=== PATIENT | male | born 1990 ===

== ENCOUNTER 2017-02-11 15:09 | Emergency (ER) | payer BC, MEDICAID ==
[2017-02-11 15:10] VITALS: BMI 26.2
[2017-02-11 15:27] VITALS: RESP 16; TEMP 98.3; O2SAT 98
[2017-02-11 15:32] VITALS: BP 102/55
--- NOTE | 2017-02-11 16:03 | ED PDOC ---
Arrival/HPI - General Chief Complaint: Weakness/Neurological Deficit Time Seen by Provider: 02/11/17 15:40 Historian: Patient, Parent - History of Present Illness Time/Duration: Other (2 months) Symptom Onset: Gradual Symptom Course: Worsening Severity Level: Severe Activities at Onset: Rest Associated Symptoms (Text): 02/11/17 16:02 Patient complains of a 2 month history of worsening total body numbness. Patient reports that his entire face both upper and both lower extremities becoming numb. No weakness. No headache. No dizziness lightheadedness. No difficulty with ADLs. No difficulty with speech. No difficulty with gait. Seems extremely anxious and nervous. He also complains of a 2 year history of chest pain. Currently no chest pain. He has been worked up by the rn clinical neurologist and PMD with no findings. He had MRI of the brain with and without contrast and I had [facility] radiology faxed me the report which showed no acute findings. He had MRI of the cervical spine with and without contrast which showed multiple disc bulges at multiple levels. Patient's biggest complaint is facial numbness, and therefore I feel that these MRI findings of his cervical spine are unrelated to his complaint. I discussed the case in detail with his PMD who will follow up in the office and refers back to the neurologist. Past Medical History - Past History Past History: No Previous - Infectious Disease Hx of Infectious Diseases: None - Past Medical History Past Medical History: No Previous - Cardiac Hx Cardiac Disorders: No - Pulmonary Hx Respiratory Disorders: No - Neurological Hx Neurological Disorder: No - HEENT Hx HEENT Disorder: No - Renal Hx Renal Disorder: No - Endocrine/Metabolic Hx Endocrine Disorders: No - Hematological/Oncological Hx Blood Disorders: No - Integumentary Hx Dermatological Disorder: No - Musculoskeletal/Rheumatological Hx Musculoskeletal Disorders: No - Gastrointestinal Hx Gastrointestinal Disorders: No - Genitourinary/Gynecological Hx Genitourinary Disorders: No - Psychiatric Hx Anxiety: Yes Hx Depression: Yes Hx Substance Use: No - Past Surgical History Past Surgical History: No Previous - Anesthesia Hx Anesthesia: No Hx Anesthesia Reactions: No Hx Malignant Hyperthermia: No - Suicidal Assessment Feels Threatened In Home Enviroment: No Family/Social History - Physician Review Nursing Documentation Reviewed: Yes Family/Social History: Unknown Family HX Smoking Status: Heavy Smoker > 10 Cigarettes Daily Hx Alcohol Use: No Hx Substance Use: No Allergies/Home Meds Allergies/Adverse Reactions: Allergies No Known Allergies Allergy (Verified 11/19/12 19:28) Home Medications: Home Meds Medication Instructions Recorded Confirmed Omeprazole 40 mg PO DAILY 01/23/17 01/23/17 Review of Systems - Physician Review All systems were reviewed & negative as marked: Yes - Review of Systems Constitutional: Normal Respiratory: Normal Cardiovascular: Chest Pain. absent: Palpitations, Syncope Gastrointestinal: absent: Abdominal Pain, Diarrhea, Nausea, Vomiting Skin: Normal Neurological: absent: Headache, Dizziness, Focal Weakness, Gait Changes, Speech Changes, Facial Droop, Disequilibrium, Seizure Physical Exam Vital Signs Temp Pulse Resp BP Pulse Ox 02/11/17 15:26 98.3 F 16 102/55 L 98 02/11/17 15:25 98.3 F 67 14 102/54 L 98 Temperature: Afebrile Blood Pressure: Normal Pulse: Regular Respiratory Rate: Normal Appearance: Positive for: Well-Appearing, Non-Toxic, Comfortable, Other (Anxious ) Pain Distress: None Mental Status: Positive for: Alert and Oriented X 3 - Systems Exam Head: Present: Atraumatic, Normocephalic Pupils: Present: PERRL Extroacular Muscles: Present: EOMI Conjunctiva: Present: Normal Ears: Present: NORMAL TM, Normal Canal. No: Erythema Mouth: Present: Moist Mucous Membranes Pharnyx: No: ERYTHEMA, EXUDATE, TONSILS ENLARGED Neck: Present: Normal Range of Motion. No: Meningeal Signs, MIDLINE TENDERNESS , Paraspinal Tenderness Respiratory/Chest: Present: Clear to Auscultation, Good Air Exchange. No: Respiratory Distress, Accessory Muscle Use Cardiovascular: Present: Regular Rate and Rhythm, Normal S1, S2. No: Murmurs Upper Extremity: Present: Normal Inspection. No: Cyanosis, Edema Lower Extremity: Present: Normal Inspection. No: Edema Neurological: Present: GCS=15, CN II-XII Intact, Speech Normal, Motor Func Grossly Intact, Normal Sensory Function, Normal Cerebellar Funct, Norm Deep Tendon Reflexes, Gait Normal Skin: Present: Warm, Dry, Normal Color. No: Rashes Psychiatric: Present: Alert, Oriented x 3, Normal Insight, Normal Concentration Disposition/Present on Arrival - Present on Arrival Any Indicators Present on Arrival: No History of DVT/PE: No History of Uncontrolled Diabetes: No Urinary Catheter: No History of Decub. Ulcer: No History Surgical Site Infection Following: None - Disposition Have Diagnosis and Disposition been Completed?: Yes Diagnosis: Numbness Disposition: HOME/ ROUTINE Disposition Time: 16:16 Patient Plan: Discharge Condition: GOOD Discharge Instructions (ExitCare): Paresthesia (ED) Referrals: Chadwick Ritchie DO [Primary Care Provider] - Follow up with primary Mario Mary MD [Staff Provider] - Follow up with primary Forms: WORK NOTE
[2017-02-11 16:13] VITALS: PULSE 67
== END 2017-02-11 16:30 | disposition home or self-care (01) ==
LOC: ED 15:09
DX: R20.9 Unspecified disturbances of skin sensation (principal)

== ENCOUNTER 2017-02-20 16:35 | Emergency (ER) | payer BC, MEDICAID ==
[2017-02-20 16:45] VITALS: BMI 26.4
[2017-02-20 16:48] VITALS: TEMP 98.3; O2SAT 99
--- NOTE | 2017-02-20 17:11 | ED PDOC ---
Arrival/HPI - General Chief Complaint: Weakness/Neurological Deficit Time Seen by Provider: 02/20/17 16:50 Historian: Patient, Parent - History of Present Illness Narrative History of Present Illness (Text): 02/20/17 17:06 26 yo male, presents with mom, c/o feeling weak, lightheadedness, and coldness and numbness to face, fingers and toes intermittently x 2 years. More frequently the past 3 months. He had symptoms today and he checked his BP with home BP machine and he said it was 82/54 and then he rechecked and SBP was 100' s. He's seen Dr. Ritchie his PMD who sent him to a Neurologist and [facility]. He saw his [facility] Dr. Bullock, in November or December where they did and stress test which was negative. He saw around the same time his Neurologist Dr. Mary who did and MRI Head 02/04 and MRI Cervical 02/06 that showed some bulging discs as showed to me by mother. He also states he hasn't been sleeping well. He wakes up here and there. He is under stress. Denies HI or SI. PMD: Dr. Ritchie [facility]: Dr. Bullock Neurologist: Dr. Mary 02/20/17 17:12 Past Medical History - Provider Review Nursing Documentation Reviewed: Yes - Past History Past History: No Previous - Infectious Disease Hx of Infectious Diseases: None - Past Medical History Past Medical History: No Previous - Cardiac Hx Cardiac Disorders: No - Pulmonary Hx Respiratory Disorders: No - Neurological Hx Neurological Disorder: No - HEENT Hx HEENT Disorder: No - Renal Hx Renal Disorder: No - Endocrine/Metabolic Hx Endocrine Disorders: No - Hematological/Oncological Hx Blood Disorders: No - Integumentary Hx Dermatological Disorder: No - Musculoskeletal/Rheumatological Hx Musculoskeletal Disorders: No - Gastrointestinal Hx Gastrointestinal Disorders: No - Genitourinary/Gynecological Hx Genitourinary Disorders: No - Psychiatric Hx Anxiety: Yes Hx Depression: Yes Hx Substance Use: No - Past Surgical History Past Surgical History: No Previous - Anesthesia Hx Anesthesia: No Hx Anesthesia Reactions: No Hx Malignant Hyperthermia: No - Suicidal Assessment Feels Threatened In Home Enviroment: No Family/Social History - Physician Review Nursing Documentation Reviewed: Yes Family/Social History: No Known Family HX Smoking Status: Heavy Smoker > 10 Cigarettes Daily Hx Alcohol Use: No Hx Substance Use: No Allergies/Home Meds Allergies/Adverse Reactions: Allergies No Known Allergies Allergy (Verified 02/20/17 16:45) Home Medications: Home Meds Medication Instructions Recorded Confirmed No Known Home Med 02/20/17 02/20/17 Review of Systems - Physician Review All systems were reviewed & negative as marked: Yes - Review of Systems Constitutional: Normal Eyes: Normal ENT: Normal Respiratory: Normal Cardiovascular: Normal Gastrointestinal: Normal Genitourinary Male: Normal Musculoskeletal: Normal Skin: Normal Neurological: Dizziness. absent: Headache, Focal Weakness, Gait Changes, Speech Changes, Facial Droop Endocrine: Normal. absent: Diaphoresis, Polyuria, Polydipsia Hemo/Lymphatic: Normal Psychiatric: Normal Physical Exam Vital Signs Reviewed: Yes Vital Signs Temp Pulse Resp BP Pulse Ox 02/20/17 18:05 68 18 109/68 99 02/20/17 16:47 98.3 F 71 16 111/70 99 Temperature: Afebrile Blood Pressure: Normal Pulse: Regular Respiratory Rate: Normal Appearance: Positive for: Well-Appearing, Non-Toxic, Comfortable Pain Distress: None Mental Status: Positive for: Alert and Oriented X 3 - Systems Exam Head: Present: Atraumatic, Normocephalic Pupils: Present: PERRL Extroacular Muscles: Present: EOMI Conjunctiva: Present: Normal Mouth: Present: Moist Mucous Membranes Neck: Present: Normal Range of Motion Respiratory/Chest: Present: Clear to Auscultation, Good Air Exchange. No: Respiratory Distress, Accessory Muscle Use Cardiovascular: Present: Regular Rate and Rhythm, Normal S1, S2. No: Murmurs Abdomen: Present: Normal Bowel Sounds. No: Tenderness, Distention, Peritoneal Signs Back: Present: Normal Inspection Upper Extremity: Present: Normal Inspection. No: Cyanosis, Edema Lower Extremity: Present: Normal Inspection. No: Edema Neurological: Present: GCS=15, CN II-XII Intact, Speech Normal Skin: Present: Warm, Dry, Normal Color. No: Rashes Psychiatric: Present: Alert, Oriented x 3, Normal Insight, Normal Concentration Medical Decision Making ED Course and Treatment: 02/20/17 17:15 26 yo male with weakness, lightheadedness, dizziness, numbness r/o electrolyte abnormalities r/o anemia r/o arrythmia -- Labs -- EKG -- Orthostatics -- Reevaluate and disposition EKG: NSR at [address] elevations, nl intervals, nl axis, no WPW 02/20/17 18:[address] Ritchie came to see this patient in the ED and agrees that patient can go home with f/u in his office. Patient's are not new or worsened. He's had an MRI already as dated in my note. He will arrange f/u with cardiology and neurology. He's able to walk in the ED with no ataxia. Neuro exam on reevaluation is normal and no change since arrived. - Lab Interpretations Lab Results: 02/20/17 18:27 02/20/17 18:27 Lab Results 02/20/17 18:27: Sodium 138, Potassium 4.3, Chloride 100, Carbon Dioxide 29, Anion Gap 13, BUN 21, Creatinine 1.0, Est GFR ( Amer) > 60, Est GFR (Non- Af Amer) > 60, Random Glucose 84, Calcium 8.9 02/20/17 18:27: WBC 6.0, RBC 4.73, Hgb 14.6, Hct 42.1, MCV 89.0, MCH 30.9, MCHC 34.7, RDW 12.2, Plt Count 236, MPV 10.2, Gran % 57.0, Lymph % (Auto) 32.1, [place] % (Auto) 9.9 H, Eos % (Auto) 0.8 L, Baso % (Auto) 0.2, Gran # 3.39, Lymph # 1.9 , [place] # 0.6, Eos # 0.1, Baso # 0.01 - EKG Interpretation Type: 12 lead EKG Disposition/Present on Arrival - Present on Arrival Any Indicators Present on Arrival: No History of DVT/PE: No History of Uncontrolled Diabetes: No Urinary Catheter: No History of Decub. Ulcer: No History Surgical Site Infection Following: None - Disposition Have Diagnosis and Disposition been Completed?: Yes Diagnosis: Numbness, Weakness Disposition: HOME/ ROUTINE Disposition Time: 18:55 Patient Plan: Discharge Patient Problems: Current Active Problems Problem Status Onset Numbness Acute Weakness Acute Condition: IMPROVED Discharge Instructions (ExitCare): Weakness (ED) Additional Instructions: Ms Pineda, thank you for letting us take care of you today. Your provider was Dr. Ridley. You were treated for Numbness, Weakness. The emergency medical care you received today was directed at your acute symptoms. If you were prescribed any medication, please fill it and take as directed. It may take several days for your symptoms to resolve. Return to the Emergency Department if your symptoms worsen, do not improve, or if you have any other problems. Please contact your doctor or call one of the physicians/clinics you have been referred to that are listed on the Patient Visit Information form that is included in your discharge packet. Bring any paperwork you were given at discharge with you along with any medications you are taking to your follow up visit. Our treatment cannot replace ongoing medical care by a primary care provider (PCP) outside of the emergency department. Thank you for allowing the [facility] team to be part of your care today. If you had an X-Ray or CT scan: A Radiologist will review the ED reading if any change in treatment is needed we will contact you. If you had a blood, urine, or wound culture: It will take several days for the results, if any change in treatment is needed we will contact you. If you had an STI test: It will take 48 hours for the results. Please call after 1 week if you have not heard back. Referrals: Chadwick Ritchie, DO [Primary Care Provider] - Follow up with primary Forms: WORK NOTE, Air Visits Discharge (Bhutanese)
[2017-02-20 18:06] VITALS: BP 109/68; PULSE 68; RESP 18
[2017-02-20 18:29] LABS: ADD MANUAL DIFF? NO
[2017-02-20 18:33] LABS: BASO # 0.01 K/mm3 (0.0-2.0); BASO % 0.2 % (0.0-3.0); EOS # 0.1 (0.0-0.7); EOS % 0.8 % (1.5-5.0); GRAN # 3.39 (1.4-6.5); HEMATOCRIT 42.1 % (42.0-52.0); LYMPH # 1.9 (1.2-3.4); LYMPH % 32.1 % (22.0-35.0); MEAN CORPUSCULAR HEMOGLOBIN 30.9 pg (25.0-35.0); MEAN CORPUSCULAR HGB CONC 34.7 g/dl (31.0-37.0); MEAN PLATELET VOLUME 10.2 fl (7.0-11.0); MONO # 0.6 (0.1-0.6); MONO % 9.9 % (1.0-6.0); PLATELET COUNT 236 10^3/uL (120.0-450.0); RED CELL DISTRIBUTION WIDTH 12.2 % (11.5-14.5)
[2017-02-20 18:43] LABS: BLOOD UREA NITROGEN 21 mg/dL (7-21); CALCIUM 8.9 mg/dL (8.4-10.5); CARBON DIOXIDE 29 mmol/L (21-33); CHLORIDE 100 mmol/L (98-107); GFR AFRICAN-AMERICAN > 60; GLUCOSE,RANDOM 84 mg/dL (70-110); POTASSIUM 4.3 mmol/L (3.6-5.0); SODIUM 138 mmol/L (132-148)
--- NOTE | 2017-02-20 21:34 | CARD ---
APPROVED REPORT EKG Measurement Heart [id number] <Conclusion> Normal sinus rhythm Normal ECG
== END 2017-02-20 19:21 | disposition home or self-care (01) ==
LOC: ED 16:35
DX: R20.9 Unspecified disturbances of skin sensation (principal); R53.1 Weakness

== ENCOUNTER 2017-04-07 18:17 | Emergency (ER) | payer BC, MEDICAID ==
[2017-04-07 18:56] VITALS: TEMP 98.3; O2SAT 100
[2017-04-07 18:59] VITALS: BMI 26.6
--- NOTE | 2017-04-07 19:54 | ED PDOC ---
Arrival/HPI <Presley Turner - Last Filed: 04/07/17 21:14> - General Historian: Patient - History of Present Illness Time/Duration: Prior to Arrival Symptom Onset: Gradual Symptom Course: Unchanged Context: Home <Mary Ellen Garcia - Last Filed: 04/07/17 21:56> - General Chief Complaint: Shortness Of Breath Time Seen by Provider: 04/07/17 19:23 - History of Present Illness Narrative History of Present Illness (Text): 04/07/17 19:48 26 yo male with PMH of depression and anxiety presented to ED with SOB and cough for 2 weeks. Patient reports nonproductive cough with SOB that is worse when laying down. He denies any fever, chill, sore throat nasal congestion. He states that he took mucinex at home but it did not help improve his symptoms. Patient also reports a chest pain that has intermittent over the past few years. Patient describes the pain as sharp, last a few seconds. Patient recently had cardiac work up including stress test which was normal. Patient denies any headache, dizziness, abs pain, vomiting, d/c, urinary symptoms. PMD: Dr. Ritchie (Mary Ellen Garcia) Past Medical History - Provider Review Nursing Documentation Reviewed: Yes - Past History Past History: No Previous - Infectious Disease Hx of Infectious Diseases: None - Past Medical History Past Medical History: No Previous - Cardiac Hx Cardiac Disorders: No - Pulmonary Hx Respiratory Disorders: No - Neurological Hx Neurological Disorder: No - HEENT Hx HEENT Disorder: No - Renal Hx Renal Disorder: No - Endocrine/Metabolic Hx Endocrine Disorders: No - Hematological/Oncological Hx Blood Disorders: No - Integumentary Hx Dermatological Disorder: No - Musculoskeletal/Rheumatological Hx Musculoskeletal Disorders: No - Gastrointestinal Hx Gastrointestinal Disorders: No - Genitourinary/Gynecological Hx Genitourinary Disorders: No - Psychiatric Hx Anxiety: Yes Hx Depression: Yes Hx Substance Use: No - Past Surgical History Past Surgical History: No Previous - Anesthesia Hx Anesthesia: No Hx Anesthesia Reactions: No Hx Malignant Hyperthermia: No - Suicidal Assessment Feels Threatened In Home Enviroment: No <Mary Ellen Garcia - Last Filed: 04/07/17 21:56> Family/Social History - Physician Review Nursing Documentation Reviewed: Yes Family/Social History: No Known Family HX Smoking Status: Light Smoker < 10 Cigarettes Daily Hx Alcohol Use: Yes Frequency of alcohol use: Socially Hx Substance Use: Yes (occasional ) Substance used: marijuana Route: Smoking/Inhalation <Mary Ellen Garcia - Last Filed: 04/07/17 21:56> Allergies/Home Meds <Presley Turner - Last Filed: 04/07/17 21:14> <Mary Ellen Garcia - Last Filed: 04/07/17 21:56> Allergies/Adverse Reactions: Allergies No Known Allergies Allergy (Verified 02/20/17 16:45) Review of Systems - Review of Systems Constitutional: Fatigue, Weight Change (wt gain ). absent: Fevers Eyes: Normal. absent: Vision Changes ENT: Normal. absent: Sore Throat, Rhinorrhea, Sinus Congestion Respiratory: SOB, Cough, Wheezing Cardiovascular: Chest Pain. absent: Palpitations, Edema, Calf Pain, Syncope Gastrointestinal: Normal. absent: Abdominal Pain, Constipation, Diarrhea, Vomiting Genitourinary Male: Normal. absent: Dysuria, Frequency Musculoskeletal: Normal. absent: Arthralgias, Back Pain, Myalgias Skin: Normal. absent: Rash, Pruritis, Ulcer Neurological: Normal. absent: Headache, Dizziness, Focal Weakness, Gait Changes Endocrine: Normal. absent: Diaphoresis Hemo/Lymphatic: Normal. absent: Easy Bleeding, Easy Bruising Psychiatric: Normal <Mary Ellen Garcia - Last Filed: 04/07/17 21:56> Physical Exam - Systems Exam Head: Present: Atraumatic, Normocephalic Pupils: Present: PERRL. No: Sluggish, Pinpoint Extroacular Muscles: Present: EOMI. No: Gaze Palsy, Entrapment Conjunctiva: Present: Normal Mouth: Present: Moist Mucous Membranes Nose (External): No: Atraumatic Neck: Present: Normal Range of Motion. No: MIDLINE TENDERNESS, Paraspinal Tenderness Respiratory/Chest: Present: Clear to Auscultation, Good Air Exchange. No: Respiratory Distress, Accessory Muscle Use, Wheezes, Rales, Rhonchi, Tachypneic Cardiovascular: Present: Regular Rate and Rhythm, Normal S1, S2. No: Murmurs, Tachycardic, Bradycardic Abdomen: Present: Normal Bowel Sounds. No: Tenderness, Distention, Peritoneal Signs Back: Present: Normal Inspection Upper Extremity: Present: Normal Inspection, NORMAL PULSES. No: Cyanosis, Edema , Tenderness, Swelling Lower Extremity: Present: Normal Inspection. No: Edema, CALF TENDERNESS Neurological: Present: GCS=15, CN II-XII Intact, Speech Normal, Gait Normal Skin: Present: Warm, Dry, Normal Color. No: Rashes, Diaphoretic, Hot, Cold, Pale Psychiatric: Present: Alert, Oriented x 3, Normal Insight, Normal Concentration <Mary Ellen Garcia - Last Filed: 04/07/17 21:56> Vital Signs Temp Pulse Resp BP Pulse Ox 04/07/17 18:55 98.3 F 65 20 102/60 100 Medical Decision Making <Presley Turner - Last Filed: 04/07/17 21:14> <Mary Ellen Garcia - Last Filed: 04/07/17 21:56> ED Course and Treatment: In agreement with resident note, which includes further HPI details. Patient was seen and evaluated with resident, came up with plan and treatment together. (Presley Turner) 04/07/17 19:57 Impression: 26 yo male with no significant PMH presented with SOB and cough. Differential diagnosis include but not limited to: - Bronchitis Plan: - EKG - CXR - tescece vargas - abx 04/07/17 20:52 - patient is resting comfortably. EKG shows NSR, rate of 62bpm, no st changes. 04/07/17 21:51 - patient continues to rest comfortably. Breathing treatment is complete. CXR showed no active disease. - Patient can be discharged home. He is to follow up with PMD in 1-2 days. Discharge plan was discussed with patient, he is in agreement, all questions answered. (Mary Ellen Garcia) - RAD Interpretation Radiology Orders: 04/07/17 20:09 CHEST TWO VIEWS (PA/LAT) [RAD] Stat - EKG Interpretation EKG Interpretation (Text): 04/07/17 20:53 RateL 62 bpm NSR, no ST changes. (Mary Ellen Garcia) - Medication Orders Current Medication Orders: Discontinued Medications Levalbuterol HCl (Xopenex) 1.25 mg IH STAT STA Stop: 04/07/17 20:09 - PA / FUEL MANAGEMENT HANDLER / Resident Statement ANTONIO has reviewed & agrees with the documentation as recorded. / has examined the patient and agrees with the treatment plan. <Presley Turner - Last Filed: 04/07/17 21:14> Disposition/Present on Arrival <Presley Turner - Last Filed: 04/07/17 21:14> - Present on Arrival Any Indicators Present on Arrival: No History of DVT/PE: No History of Uncontrolled Diabetes: No Urinary Catheter: No History of Decub. Ulcer: No History Surgical Site Infection Following: None - Disposition Have Diagnosis and Disposition been Completed?: Yes Disposition Time: 21:40 Patient Plan: Discharge <Jose,Mary Ellen - Last Filed: 04/07/17 21:56> - Disposition Diagnosis: Bronchitis Disposition: HOME/ ROUTINE Patient Problems: Current Active Problems Problem Status Onset Bronchitis Acute Condition: GOOD Additional Instructions: Israel Pineda, thank you for letting us take care of you today. Your provider was Dr. Garcia and Dr. Turner. You were treated for Bronchitis. The emergency medical care you received today was directed at your acute symptoms. If you were prescribed any medication, please fill it and take as directed. It may take several days for your symptoms to resolve. Return to the Emergency Department if your symptoms worsen, do not improve, or if you have any other problems. Please contact your doctor or call one of the physicians/clinics you have been referred to that are listed on the Patient Visit Information form that is included in your discharge packet. Bring any paperwork you were given at discharge with you along with any medications you are taking to your follow up visit. Our treatment cannot replace ongoing medical care by a primary care provider (PCP) outside of the emergency department. Thank you for allowing the [facility] [employer] team to be part of your care today. If you had an X-Ray or CT scan: A Radiologist will review the ED reading if any change in treatment is needed we will contact you. Prescriptions: Azithromycin [Z-Danyel] 250 mg PO ONCE #6 tab Benzonatate [Tessalon Perle] 100 mg PO TID PRN #30 capsule PRN Reason: Cough Referrals: Chadwick Ritchie DO [Primary Care Provider] - Follow up with primary
[2017-04-07] MEDS ORDERED: Levalbuterol 1.25 MG/3 ML Inhal Soln UD IH STA (20:08)
[2017-04-07 21:57] VITALS: BP 112/66; PULSE 62; RESP 18
--- NOTE | 2017-04-08 08:10 | RAD ---
HISTORY: cough COMPARISON: Comparison made with prior study 06/12/2015 TECHNIQUE: Chest PA and lateral FINDINGS: LUNGS: No active pulmonary disease. PLEURA: No significant pleural effusion identified. No pneumothorax apparent. CARDIOVASCULAR: Normal. OSSEOUS STRUCTURES: No significant abnormalities. VISUALIZED UPPER ABDOMEN: Normal. OTHER FINDINGS: None. IMPRESSION: No active disease.
--- NOTE | 2017-04-08 17:42 | CARD ---
APPROVED REPORT EKG Measurement Heart [id number] [place] [id number] <Conclusion> Normal sinus rhythm with sinus arrhythmia Normal ECG
== END 2017-04-07 21:57 | disposition home or self-care (01) ==
LOC: ED 18:17
DX: J40 Bronchitis, not specified as acute or chronic (principal); Z72.0 Tobacco use